=== PATIENT | male | born 1960 | race Caucasian/White ===

== ENCOUNTER 2017-12-05 08:03 | Day surgery (SDC) | payer BC ==
[2017-12-02 16:21] VITALS: BP 149/84
[2017-12-02 16:28] LABS: BASOPHILS % (AUTO) 0.4 % (0.0-5.0); EOSINOPHILS % (AUTO) 2.8 % (0.0-8.0); HEMATOCRIT 42.5 % (42-54); MEAN CORPUSCULAR HEMOGLOBIN 31.3 pg (27.0-33.0); MEAN CORPUSCULAR HGB CONC 34.5 g/dL (32.0-36.0); MEAN CORPUSCULAR VOLUME 90.9 fL (79-99); MONOCYTES % (AUTO) 9.5 % (3.0-13.0); NEUTROPHILS % (AUTO) 55.3 % (40.0-77.0); NUCLEATED RED BLOOD CELLS 0.1 % (0.0-0.19); PLATELET COUNT (AUTO) 258 K/uL (130-400); RED BLOOD CELL COUNT(AUTO) 4.68 MIL/uL (4.50-6.20); RED CELL DISTRIBUTION WIDTH 13.4 % (11.0-15.5); WHITE BLOOD COUNT (AUTO) 5.7 K/uL (4.8-10.8)
[2017-12-02 16:30] LABS: APPEARANCE,URINE Clear (CLEAR); BILIRUBIN,URINE Negative (NEGATIVE); COLOR,URINE Yellow (YELLOW); GLUCOSE, URINE (UA) Negative (NEGATIVE); KETONES,URINE Negative (NEGATIVE); LEUKOCYTE ESTERASE ,URINE Negative (NEGATIVE); NITRATE,URINE Negative (NEGATIVE); OCCULT BLOOD,URINE Negative (NEGATIVE); PH,URINE 6.5 (5.0-8.0); PROTEIN,URINE Negative (NEGATIVE); UROBILINOGEN,URINE 0.2 mg/dL (0.2-1.0)
[2017-12-02 16:36] LABS: CREATININE 1.1 mg/dL (0.5-1.5); POTASSIUM 4.2 mmol/L (3.5-5.1)
[~2017-12-05] VITALS: Ht 198.1 cm; Wt 136.6 kg
[2017-12-05] VITALS (14 sets, daily range): BP systolic 118–132; BP diastolic 66–83
[~2017-12-05 08:03] MED LIST: ASPI-555 PO; CEFTRIAXONE SODIUM 1 GM IVP SCH; GENTAMICIN 80 MG/NS 100 ML PB 100 ML IV SCH; MULT-1203 PO; TAMS-1 PO
[2017-12-05] MEDS ORDERED: LACTATED RINGERS 1000ML 1,000 ML IV ONE (08:38)
[2017-12-05] MEDS ORDERED: ISOVUE-370 50ML VIAL IV ONE (09:04)
[2017-12-05] MEDS ORDERED: GLYCOPYRROLATE 0.2 MG/ML 5 ML VIAL ONE (09:07)
[2017-12-05] MEDS ORDERED: DEXAMETHASONE SOD PHOSPHATE 10MG/ML 1ML VIAL ONE (09:07)
[2017-12-05] MEDS ORDERED: LIDOCAINE PF 2% 5ML ABBOJECT ONE (09:07)
[2017-12-05] MEDS ORDERED: PROPOFOL 10 MG/ML 20ML VIAL IV ONE (09:07)
[2017-12-05] MEDS ORDERED: MIDAZOLAM HCL 1 MG/ML 2ML VIAL ONE (09:07)
[2017-12-05] MEDS ORDERED: ONDANSETRON HCL 4 MG/2 ML VIAL ONE (09:07)
[2017-12-05] MEDS ORDERED: NEOSTIGMINE 5MG/5ML SYR IV ONE (09:07)
[2017-12-05] MEDS ORDERED: FENTANYL CITRATE PF 50 MCG/1 ML 2ML VIAL ONE (09:08)
[2017-12-05] MEDS ORDERED: ROCURONIUM BROMIDE 10MG/1ML 5ML VL ONE (09:10)
== END 2017-12-05 11:40 | disposition home or self-care (01) ==
LOC: DAH 08:03
PROVIDERS: ATTEND Urology
DX: N21.0 Calculus in bladder (principal); N40.1 Benign prostatic hyperplasia with lower urinary tract symptoms; Z83.3 Family history of diabetes mellitus; Z82.49 Family history of ischemic heart disease and other diseases of the circulatory system; E66.9 Obesity, unspecified; Z98.890 Other specified postprocedural states
CPT/HCPCS: 36415; 52317; 80048; 81003; 82360; 85025; 87088; 88300; 93005; A4358; A4600; C1758; J0696; J1100; J1580; J2001; J2250; J2405; J2704; J2710; J3010; J3490 ×2; J7120; Q9967

== ENCOUNTER 2024-07-30 19:34 | Emergency (ER) | payer MEDICARE ==
[~2024-07-30] VITALS: Ht 195.6 cm; Wt 132.9 kg
[~2024-07-30 19:34] MED LIST changes: -ASPI-555 PO; +ASPI-556 PO; -CEFTRIAXONE SODIUM 1 GM IVP SCH; -GENTAMICIN 80 MG/NS 100 ML PB 100 ML IV SCH
[2024-07-30 20:20] VITALS: TEMP 97.3
--- NOTE | 2024-07-30 20:57 | HMCIMG ---
Exam Type: CT HEAD/BRAIN W/O CONTRAST Clinical Information: severe right sided headache Comparison: None CT Dose Index (CTDI): 57.33 mGy Dose Length Product (DLP): 956.79 total mGy-cm Findings: The examination is unremarkable. Geiger-white matter junction is preserved. No intra or extra axial lesions or fluid collections are seen. Specifically, geiger and white matter are normal in signal characteristics with normal caliber of ventricles and periventricular cisterns with no evidence of intra or or extra-axial hemorrhage, lacunar infarct, or major territorial infarct, mass, or other abnormality. There are no infarcts. There are no hemorrhages. Periventricular white matter locations are preserved. The orbital contents and structures of the posterior fossa are intact. Impression: Normal CT of the head. This study was performed using dose reduction techniques to include automated exposure control and/or adjustment of the mA and/or kV according to patient size.
[2024-07-30 21:13] VITALS: BP 150/92; PULSE 68; RESP 18; O2SAT 97
--- NOTE | 2024-07-30 21:18 | ERN ---
General Chief Complaint: Headache Stated Complaint: SEVERE HEADACHES Time Seen by MD: 19:45 Time Seen by Midlevel: 19:45 Source: patient History of Present Illness Initial Comments Patient is a 64-year-old male presenting to the emergency department with a severe right-sided headache that has been ongoing for the last couple of days. He states the right side of his head feels swollen. He denies any ear pain, vision changes, nausea, vomiting, fever, chills, or any other symptoms at this time. He was already seen his primary care doctor for this issue. No other complaints reported at this time Allergies: Coded Allergies: No Known Drug Allergies (Unverified Allergy, Unknown, 12/02/17) Home Meds Active Scripts Cephalexin Monohydrate (Keflex) 500 Mg Cap, 500 MG PO BID for 7 Days, #14 CAP Prov:MARLON LUNA 07/30/24 Reported Medications Aspirin (Aspir 81) 81 Mg Tablet.dr, 81 MG PO DAILY, TAB 12/02/17 Multivitamin (Multi Vitamin Daily) 1 Each Tablet, 1 EACH PO DAILY, TAB 12/02/17 Tamsulosin HCl (Flomax) 0.4 Mg Cap.er.24h, 0.4 MG PO DAILY, CAPSULE.DR 12/02/17 Past Medical History Past Medical History: Hypertension Past Surgical History: None ROS Dictation CONSTITUTIONAL: Negative except for HPI HEAD/FACE: Negative except for HPI EENT: Negative except for HPI RESPIRATORY: Negative except for HPI GASTROINTESTINAL/ABDOMINAL: Negative except for HPI GENITOURINARY: Negative except for HPI MUSCULOSKELETAL: Negative except for HPI INTEGUMENTARY: Negative except for HPI NEUROLOGICAL/PSYCH: Negative except for HPI HEMATOLOGIC/LYMPHATIC: Negative except for HPI All Systems Negative, Except as noted above. 13 point review of systems assessed and all negative except for above. Physical Exam Physical Exam Dictation Vital Signs reviewed General Appearance: Alert, oriented x 3, no acute distress, well developed, nourished. Head and Face: non-traumatic. Eyes: PERRL, pink conjunctivas, eyelid no trauma, anterior chamber with arcus senilis. Ears: Pinnas intact and no signs of trauma or erythema ear canals clear and no discharge TM no erythema Nose: No discharge, no bleeding. Oropharynx: Mouth normal, tongue pink, pharynx clear,no erythema, tonsils no exudates, no abscesses noted, mucous membrane moist Neck: Supple, non-tender, no thyromegaly, no masses, no JVD, no bruits Breast:Deferred Chest:No tenderness, no crepitus, no paradoxical movement, no retractions Lungs:Clear, well-ventilated, symmetric, no rales, no wheezing, no rhonchi, no stridor, good breath sounds bilaterally Heart: Regular rate, regular rhythm, no murmur, no gallops Vascular: no peripheral edema, Abdomen: Soft, positive bowel sounds, nondistended, no guarding, nontender, no rebound, no masses no hepatomegaly, no splenomegaly, no Nesbitt's sign, no hernias. Rectal: Deferred Genital: Deferred Neurological: Normal speech, motor function intact, sensory function intact Musculoskeletal: Neck nontender, full range of motion, back nontender, full range of motion, Extremities: nontender, full range of motion Skin: Color pink, dry, no turgor, no rash, no lacerations, no abrasions, no contusions. Lymphatic: Deferred MDM MDM: Differential diagnosis: Migraine headache, mastoiditis, otitis media, otitis externa There are no social concerns with this patient. Prescription drug management Prescriptions will include: None Medical management and examination interpretation discussions were had by me with other qualified healthcare professionals as indicated for the patient's care. ED Course Orders Procedure Category Date Status Time Ct Head/Brain W/O CT 07/30/24 Resulted Contrast 20:10 Vital Signs Date Time Temp Pulse Resp B/P (MAP) Pulse Ox O2 Delivery O2 Flow Rate FiO2 07/30/24 21:13 68 18 150/92 97 Room Air* 0 21 07/30/24 20:20 97.3 69 20 159/97 98 Room Air* 0 21 07/30/24 20:07 98.4 85 20 161/99 95 Room Air [place] [address] [address] IMAGING REPORT Signed PATIENT: ARJUN CARLOS JR MR#: [id number] : 1960 SEX: M AGE: 64 LOCATION: [facility] ORDER 10 STATUS: REG ER REPORT#: [id number] SERVICE 09 REASON: severe right sided headache ORDERING PHYSICIAN: MARLON LUNA PROCEDURE: HEAD WO - CT HEAD/BRAIN W/O CONTRAST Exam Type: CT HEAD/BRAIN W/O CONTRAST Clinical Information: severe right sided headache Comparison: None CT Dose Index (CTDI): 57.33 mGy Dose Length Product (DLP): 956.79 total mGy-cm Findings: The examination is unremarkable. Geiger-white matter junction is preserved. No intra or extra axial lesions or fluid collections are seen. Specifically, geiger and white matter are normal in signal characteristics with normal caliber of ventricles and periventricular cisterns with no evidence of intra or or extra-axial hemorrhage, lacunar infarct, or major territorial infarct, mass, or other abnormality. There are no infarcts. There are no hemorrhages. Periventricular white matter locations are preserved. The orbital contents and structures of the posterior fossa are intact. Impression: Normal CT of the head. This study was performed using dose reduction techniques to include automated exposure control and/or adjustment of the mA and/or kV according to patient size. DICTATED BY: MANJINDER GRIFFIN MD DATE: 07/30/242053 ELECTRONICALLY SIGNED BY: MANJINDER GRIFFIN MD DATE: 07/30/242056 DX & DISP Disposition: Discharge Departure Impression: Primary Impression: Right-sided headache Condition: Stable Scripts Cephalexin Monohydrate (Keflex) 500 Mg Cap 500 MG PO BID for 7 Days, #14 CAP Prov: MARLON LUNA 07/30/24 Additional Instructions: Your CT scan of the head does not show any abnormalities. We will treat as a superficial infection of the skin. I have given you a prescription for Keflex. Follow up with your primary care doctor next week for repeat evaluation. Return to the ER for any new or worsening symptoms Referrals: CHARIS HANSEN MD (PCP) Time of Disposition: 21:17 I have reviewed the case, and I agree with, Diagnosis and Plan I performed the substantive portion of the visit. I have reviewed and personally made and approve the management plan that is documented in the note by myself or the JUSTYN. I acknowledge for responsibility for the patient's management plan. MARLNO LUNA Jul 30, 2024 21:18
[2024-07-30] MEDS ORDERED: CEPH500B PO (21:31)
== END 2024-07-30 21:35 | disposition home or self-care (01) ==
LOC: EDH 19:34
DX: R51.9 Headache, unspecified (principal); I10 Essential (primary) hypertension; Z79.82 Long term (current) use of aspirin; Z79.899 Other long term (current) drug therapy
CPT/HCPCS: 70450; 99284